=== PATIENT | female | born 1985 | race Caucasian/White ===

== ENCOUNTER 2018-03-11 13:01 | Inpatient (IN) | payer MEDICARE ==
[2018-03-11] VITALS (13 sets, daily range): BP systolic 100–147; BP diastolic 53–93; Ht 167.6 cm; Wt 121.9 kg
[~2018-03-11] VITALS: Ht 167.6 cm; Wt 121.9 kg
--- NOTE | ~2018-03-11 | HP ---
PATIENT: MARY NICOLE MEDICAL RECORD: [id number] ACCOUNT: [id number] LOCATION:[facility] D2312 : 84 ADMISSION DATE: 03/11/18 HISTORY AND PHYSICAL EXAMINATION REASON FOR ADMISSION: Altered mental status and confusion. HISTORY OF PRESENT ILLNESS: The patient is a 32-year-old 5, para 4 female recently moved from [place], [place] to [facility] here in [place]. She states she initially was unable to give any history due to altered mental status, but is able to morning. The patient and her mother states that she has been out of some of her medicines for about 3-4 days due to her move and medicines were called into the [facility] pharmacy here prior to starting those back. She had gone to [place] to buy a bag of ice with her mother, became very confused, was screaming and not making sense. Police were called and EMS was called. The patient became lethargic and presented with altered mental status by EMS. The patient had a history of the hydrocodone for sciatica and stated she had taken some lorazepam. In the ED, the patient was very confused, but vital signs were stable. She had a CT of the head and abdomen due to complain of abdominal pain and that were unremarkable. There is no history of head injury, but a strong history for schizophrenia and possible bipolar disorder. The patient is more alert this morning and able to answer questions and not remember any of the previous events. She denies a history of head injury or seizures in the past. PAST MEDICAL HISTORY: Herniated lumbar disc with sciatica causing chronic back pain, schizophrenia since age 13, questionable bipolar illness, ADHD, sinus tachycardia, HPV infection, recent diagnosis of cervical cancer approximately a month ago, history of peptic ulcer disease, obesity, nicotine addiction, history of chronic iron deficiency anemia. PAST SURGICAL HISTORY: times 1, cholecystectomy, tonsillectomy and adenoidectomy. ALLERGIES: PENICILLINS. FAMILY HISTORY: Mother with diabetes, bipolar, and rheumatoid arthritis. Father of lung cancer, was a smoker. One sister with diabetes. SOCIAL HISTORY: She is to an [place]-. She has 4 living children. Both she and her are disabled. Socially 2-3 pack a day smoker. No alcohol or illicit drugs she states. MEDICATIONS: Partial list are Seroquel 300 mg at h.s., Effexor XR 150 mg daily, Prilosec 20 mg p.o. daily, [place] 5/325 one t.i.d. for low back pain. REVIEW OF SYSTEMS: GENERAL: No fever, fatigue, or weight change. HEENT: No recent visual change, sinus congestion, sore throat or headache. RESPIRATORY: No severe cough. CARDIAC: No chest pain, claudication, history of hypertension or heart disease. Only history of sinus tachycardia. GASTROINTESTINAL: No nausea, vomiting, change in stools or blood per rectum. GENITOURINARY: Complains of dysuria. GYNECOLOGICAL: Has regular menstrual cycles, last 2 weeks ago. HISTORY AND PHYSICAL [id number] MARY NICOLE MUSCULOSKELETAL: Has chronic lumbago, sciatica in the right upper buttocks and leg, which is a problem for her. She said surgery was not recommended. NEUROLOGIC: No history of seizures or head trauma. PSYCHIATRIC: She had a history of suicide ideation and paranoid thoughts, but none recently. PHYSICAL EXAMINATION: VITAL SIGNS: Blood pressure was 110/70, heart rate of 90, respirations of 18, temperature 98.6, O2 sat 96% on room air. GENERAL: The patient initially was disoriented and somnolent. HEENT: Her eyes were clear. Pupils reactive. Sclerae nonicteric. Oropharynx shows poor dentition. NECK: Supple. CHEST: Clear. HEART: Regular without murmur. BREASTS: Symmetrical. ABDOMEN: Obese, soft, nontender. In the midline, in her previous scar under her panniculus, there is a small sinus tract. PELVIC: Deferred. EXTREMITIES: Show multiple tattoos on her skin. She has 1+ bipedal edema. NEUROLOGICAL: The patient now is oriented to person, place, and time. Initially was not. She has no obvious motor or sensory deficits. She has a positive SOR on the right. INTEGUMENT: She is nonicteric. No obvious skin lesions except for the sinus tract wound in her scar midline abdomen. LABORATORY DATA: Shows a white count of 8500 with normal diff, H&H of 7.7 and 27.4. BMP is normal. Tox screen is positive for opiates. Urinalysis shows 1+ leukocyte esterase, 0-5 white and red cells, negative beta hCG. CT of the head was negative. CT of the abdomen and pelvis with IV contrast was unremarkable. ASSESSMENT: 1. Altered mental status, most likely due to abrupt drug withdrawals. 2. History of bipolar depression with suicidal ideation. 3. Chronic iron deficiency anemia due to metromenorrhagia. 4. History of HPV, peptic ulcer disease, lumbago with sciatica, depression, nicotine addiction. PLAN: The patient is much more alert today. She states her bander and cellophaner machine helper in [place]'s name is Dr. Millard. We will have psychiatric and MANAGER ORDER evaluations today to continue continuity of her care, especially in regards to her cervical cancer, start oral iron replacement for her anemia. Further workup pending clinical course. TRANSINT:[id number] Voice Confirmation ID: [id number] DOCUMENT ID: [id number] HISTORY AND PHYSICAL [id number] MARY NICOLE TIMOTHY MD at 0703 CC: [id number] DICTATION DATE: 03/12/18 0745 SUPERVISOR SLASHING DEPARTMENT: 03/12/18 1129 DIS IN 03/12/18 [facility] [address] [place] [address]
--- NOTE | ~2018-03-11 | DS ---
PATIENT:MARY NICOLE :83 MEDICAL RECORD: [id number] DISCHARGE SUMMARY ADMISSION DATE: 03/11/18 DISCHARGE DATE: 03/12/18 DISCHARGE DIAGNOSES: Altered mental status, most likely due to abrupt withdrawal of home medications, bipolar depression with suicidal ideation and chronic iron deficiency anemia, metromenorrhagia, cervical cancer. HOSPITAL COURSE: A 32-year-old 5, para 4 female admitted to services on med protection agent. She was admitted after the patient became very confused, screaming, and not making sense. Police were called to [facility] where she was with her mother and EMS was called. The patient then became lethargic and presented with altered mental status. The patient had a longstanding history of hydrocodone use for sciatica and lorazepam but apparently she had moved here from [place] and could not get her medications refilled and had withdrawal symptoms. CT of the head and abdomen are normal in the ER. She was admitted to the ICU. Apparently, she had some suicidal thoughts as well. The patient was admitted to ICU. Labs were essentially unremarkable. The patient also gave me a history once she became more alert of recent cervical cancer but had not had followup with her CRISIS INTERVENTION COUNSELOR. It is unclear whether she will stay here for further workup or go back to [place]. Consultation with psychiatrist, Dr. Taye Barrios III was obtained. His impression was the patient was schizophrenic, possibly cluster B personality disorder. He recommended admitting to the patient into [facility] for a few days for a more complete assessment and to follow with outpatient treatment through [facility] and have a followup CRISIS INTERVENTION COUNSELOR exam with Dr. Vela at [facility]. The patient was accepted and transferred to [facility] on the day of her consultation on 03/12/2018. When the dependency case manager evaluated the patient at 1300 hours on 03/12/2018, the patient stated she did not want to go to [facility]. It was explained to her that we legally could not hold her because Dr. Barrios, psychiatry, did not think she was suicidal or homicidal. The patient therefore requested to leave [place]. Her IV was removed. The patient's nurse called me and I asked her to confirm if the patient will leave [place] and not seek psychiatric advice and she confirmed that. She was discharged, but as she was leaving [place] we were unable to prescribe any of her chronic medications. She states she will obtain those from her physician at [place]. TRANSINT:[id number] Voice Confirmation ID: [id number] DOCUMENT ID: [id number] VICENTE DUKE MD at 0810 CC: [id number] DICTATION DATE: 04/28/18 1244 SCHOOL VOCATIONAL EDUCATOR: 04/29/18 0522 DIS IN 03/12/18 [place] [id number] [place] [id number]
[2018-03-11 13:51] LABS: APPEARANCE CLEAR (CLEAR); BILIRUBIN NEGATIVE (NEGATIVE); COLOR STRAW (YELLOW); GLUCOSE NEGATIVE (NEGATIVE); KETONE NEGATIVE (NEGATIVE); NITRITE NEGATIVE (NEGATIVE); PROTEIN NEGATIVE (NEGATIVE); SPECIFIC GRAVITY 1.005 (1.005-1.020); UROBILINOGEN NORMAL (NORMAL)
[2018-03-11 13:53] LABS: BACTERIA FEW /hpf (NONE SEEN); EPITHELIAL CELLS 0-5 /hpf (0-5); RED CELLS - URINE 0-5 /hpf (0-5); WHITE CELLS - URINE 0-5 /hpf (0-5)
[2018-03-11 14:07] LABS: UDS - AMPHET NEGATIVE QUAL (NEGATIVE); UDS - BARB NEGATIVE QUAL (NEGATIVE); UDS - BENZO NEGATIVE QUAL (NEGATIVE); UDS - COCAINE NEGATIVE QUAL (NEGATIVE); UDS - OPIATE POSITIVE QUAL (NEGATIVE); UDS - PCP NEGATIVE QUAL (NEGATIVE); UDS - THC NEGATIVE QUAL (NEGATIVE)
[2018-03-11 14:26] LABS: BASOPHILS 0.4 % (0-2); EOSINOPHILS 1.3 % (0-7); HEMATOCRIT 27.4 % (36.0-48.0); HEMOGLOBIN 7.7 g/dL (12-16); IMMATURE GRANULOCYTES 0.2 % (0-5); LYMPHOCYTES 34.8 % (15-50); MCH 22.6 pg (26.0-34.0); MCHC 28.1 g/dL (31.0-37.0); MCV 80.6 fL (80.0-100.0); MEAN PLATELET VOLUME 9.7 fL (7.4-10.4); MONOCYTES 7.2 % (2-11); NEUTROPHILS 56.1 % (40-80); PLATELET COUNT 193 10x3/uL (130-400); RDW 19.3 % (11.5-14.5); WBC 8.5 10x3/uL (4.8-10.8)
[2018-03-11 15:05] LABS: ALBUMIN 3.5 g/dL (3.4-5.0); ALKALINE PHOSPHATASE 123 U/L (46-116); ALT (SGPT) 14 U/L (10-68); CALC OSMOLALITY 279 mosm/kg (275-300); CALCIUM 8.9 mg/dL (8.5-10.1); CARBON DIOXIDE 24.3 mmol/L (21.0-32.0); CHLORIDE - SERUM 107 mmol/L (98-107); CREATININE - SERUM 0.7 mg/dL (0.6-1.3); GLUCOSE 90 mg/dL (74-106); PROTEIN - SERUM 7.3 g/dL (6.4-8.2); SODIUM 141 mmol/L (136-145); UREA NITROGEN 10 mg/dL (7-18); eGFR NON AFRICAN AMERICAN > 90 mL/min (90-120)
[2018-03-11 16:21] LABS: HCG URINE NEGATIVE (NEGATIVE)
[2018-03-12] VITALS (12 sets, daily range): BP systolic 103–144; BP diastolic 59–95
[2018-03-12 04:23] LABS: BASOPHILS 0.3 % (0-2); EOSINOPHILS 2.2 % (0-7); HEMATOCRIT 27.7 % (36.0-48.0); HEMOGLOBIN 7.8 g/dL (12-16); IMMATURE GRANULOCYTES 0.2 % (0-5); LYMPHOCYTES 34.6 % (15-50); MCH 22.5 pg (26.0-34.0); MCHC 28.2 g/dL (31.0-37.0); MCV 80.1 fL (80.0-100.0); MEAN PLATELET VOLUME 9.4 fL (7.4-10.4); MONOCYTES 7.2 % (2-11); NEUTROPHILS 55.5 % (40-80); RBC 3.46 10x6/uL (4.00-5.40); RDW 19.1 % (11.5-14.5); WBC 6.4 10x3/uL (4.8-10.8)
[2018-03-12 04:34] LABS: PLATELET COUNT 305 10x3/uL (130-400)
[2018-03-12 04:45] LABS: CALC OSMOLALITY 282 mosm/kg (275-300); CALCIUM 8.4 mg/dL (8.5-10.1); CARBON DIOXIDE 26.6 mmol/L (21.0-32.0); CHLORIDE - SERUM 107 mmol/L (98-107); CREATININE - SERUM 0.6 mg/dL (0.6-1.3); GLUCOSE 87 mg/dL (74-106); POTASSIUM - SERUM 3.8 mmol/L (3.5-5.1); SODIUM 143 mmol/L (136-145); UREA NITROGEN 10 mg/dL (7-18); eGFR NON AFRICAN AMERICAN > 90 mL/min (90-120)
[2018-03-12] MEDS ORDERED: OMEPRAZOLE40 MG PO (11:59)
[2018-03-12] MEDS ORDERED: SEROQUEL XR200 MG PO (11:59)
[2018-03-12] MEDS ORDERED: REQUIP1 MG PO (11:59)
[2018-03-12] MEDS ORDERED: EFFEXOR XR150 MG PO (11:59)
[2018-03-12] MEDS ORDERED: KLONOPIN1 MG PO (12:00)
[2018-03-12] MEDS ORDERED: AMBIEN10 MG PO (12:00)
[2018-03-12] MEDS ORDERED: HYDROCODON-ACE1 EAC6 PO (12:02)
[2018-03-12] MEDS ORDERED: PERCOCET 5-3251 TAB PO (12:05)
== END 2018-03-12 13:39 | disposition left against medical advice (07) | DRG 894 ==
LOC: D.ER 13:01 → EDBD 18:26 → D.ICU 18:26
PROVIDERS: Family Medicine
DX: F19.939 Other psychoactive substance use, unspecified with withdrawal, unspecified (principal); R40.2363 Coma scale, best motor response, obeys commands, at hospital admission; R40.2143 Coma scale, eyes open, spontaneous, at hospital admission; R40.2243 Coma scale, best verbal response, confused conversation, at hospital admission; D50.9 Iron deficiency anemia, unspecified; C53.9 Malignant neoplasm of cervix uteri, unspecified; F20.9 Schizophrenia, unspecified; N92.1 Excessive and frequent menstruation with irregular cycle

== ENCOUNTER 2018-03-22 14:34 | Emergency (ER) | payer MEDICARE ==
[~2018-03-22] VITALS: Ht 167.6 cm; Wt 124.5 kg
[~2018-03-22 14:34] MED LIST: AMBIEN10 MG PO; EFFEXOR XR150 MG PO; HYDROCODON-ACE1 EAC6 PO; KLONOPIN1 MG PO; OMEPRAZOLE40 MG PO; PERCOCET 5-3251 TAB PO; REQUIP1 MG PO; SEROQUEL XR200 MG PO
[2018-03-22 14:36] VITALS: Ht 167.6 cm; Wt 124.5 kg
[2018-03-22 15:02] LABS: UDS - AMPHET NEGATIVE QUAL (NEGATIVE); UDS - BARB NEGATIVE QUAL (NEGATIVE); UDS - BENZO POSITIVE QUAL (NEGATIVE); UDS - COCAINE NEGATIVE QUAL (NEGATIVE); UDS - OPIATE NEGATIVE QUAL (NEGATIVE); UDS - PCP NEGATIVE QUAL (NEGATIVE); UDS - THC NEGATIVE QUAL (NEGATIVE)
[2018-03-22 16:23] LABS: APPEARANCE CLEAR (CLEAR); BACTERIA MANY /hpf (NONE SEEN); BILIRUBIN NEGATIVE (NEGATIVE); COLOR YELLOW (YELLOW); EPITHELIAL CELLS 0-5 /hpf (0-5); GLUCOSE NEGATIVE (NEGATIVE); KETONE NEGATIVE (NEGATIVE); NITRITE NEGATIVE (NEGATIVE); PROTEIN NEGATIVE (NEGATIVE); RED CELLS - URINE 0-5 /hpf (0-5); UROBILINOGEN NORMAL (NORMAL); WHITE CELLS - URINE 25-50 /hpf (0-5)
[2018-03-22] MEDS ORDERED: ROBAXIN-750750 MG PO (16:55)
[2018-03-22] MEDS ORDERED: TALWIN NX1 TAB PO (16:55)
[2018-03-22] MEDS ORDERED: MACROBID100 MG PO (16:55)
[2018-03-22 17:38] VITALS: BP 130/78
== END 2018-03-22 17:35 | disposition home or self-care (01) ==
LOC: D.ER 14:34
PROVIDERS: Emergency Medicine
DX: S89.91XA Unspecified injury of right lower leg, initial encounter (principal); X58.XXXA Exposure to other specified factors, initial encounter; Y93.89 Activity, other specified; Y92.89 Other specified places as the place of occurrence of the external cause; N39.0 Urinary tract infection, site not specified

== ENCOUNTER 2018-05-14 17:32 | Emergency (ER) | payer MEDICARE ==
[~2018-05-14] VITALS: Ht 167.6 cm; Wt 120.0 kg
[~2018-05-14 17:32] MED LIST changes: +MACROBID100 MG PO; +ROBAXIN-750750 MG PO; +TALWIN NX1 TAB PO
[2018-05-14 17:55] VITALS: Ht 167.6 cm; Wt 120.0 kg
[2018-05-14 18:38] LABS: APPEARANCE CLEAR (CLEAR); COLOR YELLOW (YELLOW)
[2018-05-14 18:39] LABS: BACTERIA FEW /hpf (NONE SEEN); BILIRUBIN NEGATIVE (NEGATIVE); EPITHELIAL CELLS 0-5 /hpf (0-5); GLUCOSE NEGATIVE (NEGATIVE); KETONE NEGATIVE (NEGATIVE); NITRITE NEGATIVE (NEGATIVE); PROTEIN NEGATIVE (NEGATIVE); RED CELLS - URINE OCC /hpf (0-5); UROBILINOGEN NORMAL (NORMAL); WHITE CELLS - URINE 0-5 /hpf (0-5)
[2018-05-14 19:27] LABS: BASOPHILS 0.3 % (0-2); EOSINOPHILS 2.1 % (0-7); HEMATOCRIT 28.6 % (36.0-48.0); HEMOGLOBIN 8.4 g/dL (12-16); IMMATURE GRANULOCYTES 0.3 % (0-5); LYMPHOCYTES 37.3 % (15-50); MCH 23.3 pg (26.0-34.0); MCHC 29.4 g/dL (31.0-37.0); MCV 79.2 fL (80.0-100.0); MEAN PLATELET VOLUME 8.8 fL (7.4-10.4); MONOCYTES 4.5 % (2-11); NEUTROPHILS 55.5 % (40-80); PLATELET COUNT 330 10x3/uL (130-400); RBC 3.61 10x6/uL (4.00-5.40); WBC 7.2 10x3/uL (4.8-10.8)
[2018-05-14 20:07] LABS: ALBUMIN 3.5 g/dL (3.4-5.0); ALKALINE PHOSPHATASE 143 U/L (46-116); ALT (SGPT) 18 U/L (10-68); BILIRUBIN - TOTAL 0.17 mg/dL (0.2-1.3); CALC OSMOLALITY 275 mosm/kg (275-300); CALCIUM 8.6 mg/dL (8.5-10.1); CARBON DIOXIDE 27.1 mmol/L (21.0-32.0); CHLORIDE - SERUM 104 mmol/L (98-107); CREATININE - SERUM 0.7 mg/dL (0.6-1.3); GLUCOSE 97 mg/dL (74-106); POTASSIUM - SERUM 3.9 mmol/L (3.5-5.1); PROTEIN - SERUM 7.8 g/dL (6.4-8.2); SODIUM 139 mmol/L (136-145); UREA NITROGEN 8 mg/dL (7-18); eGFR NON AFRICAN AMERICAN > 90 mL/min (90-120)
[2018-05-14 20:29] LABS: AMYLASE - SERUM 29 U/L (25-115); CKMB 0.9 U/L (0.0-3.6); CREATINE KINASE 66 UL (21-215); LIPASE 127 U/L (73-393)
[2018-05-14 20:39] LABS: TROPONIN-I < 0.017 ng/mL (0.000-0.060)
[2018-05-14] MEDS ORDERED: NORCO 7.5/325 T1 TA1 PO (21:29)
[2018-05-14 22:04] VITALS: BP 129/72
== END 2018-05-14 22:05 | disposition home or self-care (01) ==
LOC: D.ER 17:32
PROVIDERS: Family Medicine
DX: R10.9 Unspecified abdominal pain (principal); R35.0 Frequency of micturition; Z86.711 Personal history of pulmonary embolism; K21.9 Gastro-esophageal reflux disease without esophagitis

== ENCOUNTER 2018-05-21 13:01 | Emergency (ER) | payer MEDICARE ==
[~2018-05-21] VITALS: Ht 167.6 cm; Wt 120.0 kg
[~2018-05-21 13:01] MED LIST changes: +NORCO 7.5/325 T1 TA1 PO
[2018-05-21 13:03] VITALS: BP 169/97; Ht 167.6 cm; Wt 120.0 kg
[2018-05-21 15:22] LABS: APPEARANCE CLEAR (CLEAR); BILIRUBIN NEGATIVE (NEGATIVE); COLOR YELLOW (YELLOW); GLUCOSE NEGATIVE (NEGATIVE); KETONE NEGATIVE (NEGATIVE); NITRITE NEGATIVE (NEGATIVE); PROTEIN NEGATIVE (NEGATIVE); UROBILINOGEN NORMAL (NORMAL)
[2018-05-21 15:29] LABS: RED CELLS - URINE 0-5 /hpf (0-5); WHITE CELLS - URINE >50 /hpf (0-5)
[2018-05-21 15:30] LABS: BACTERIA MANY /hpf (NONE SEEN)
[2018-05-21] MEDS ORDERED: ULTRAM50 MG PO (16:11)
[2018-05-21] MEDS ORDERED: NEURONTIN 300300 MG PO (16:11)
== END 2018-05-21 16:41 | disposition home or self-care (01) ==
LOC: D.ER 13:01
PROVIDERS: Emergency Medicine
DX: M54.16 Radiculopathy, lumbar region (principal); K21.9 Gastro-esophageal reflux disease without esophagitis; F17.200 Nicotine dependence, unspecified, uncomplicated

== ENCOUNTER 2018-08-24 21:08 | Emergency (ER) | payer MEDICARE ==
[~2018-08-24] VITALS: Ht 167.6 cm; Wt 113.6 kg
[~2018-08-24 21:08] MED LIST changes: +NEURONTIN 300300 MG PO; +ULTRAM50 MG PO
[2018-08-24 21:12] VITALS: Ht 167.6 cm; Wt 113.6 kg
[2018-08-24 21:34] LABS: BASOPHILS 0.3 % (0-2); HEMATOCRIT 32.6 % (36.0-48.0); HEMOGLOBIN 9.9 g/dL (12-16); IMMATURE GRANULOCYTES 0.2 % (0-5); LYMPHOCYTES 28.4 % (15-50); MCH 25.6 pg (26.0-34.0); MCHC 30.4 g/dL (31.0-37.0); MCV 84.5 fL (80.0-100.0); MEAN PLATELET VOLUME 9.3 fL (7.4-10.4); MONOCYTES 4.2 % (2-11); NEUTROPHILS 65.9 % (40-80); PLATELET COUNT 375 10x3/uL (130-400); RBC 3.86 10x6/uL (4.00-5.40); RDW 18.7 % (11.5-14.5); WBC 10.5 10x3/uL (4.8-10.8)
[2018-08-24 21:47] LABS: HCG SERUM NEGATIVE (NEGATIVE)
[2018-08-24 21:48] LABS: ALBUMIN 3.6 g/dL (3.4-5.0); ALKALINE PHOSPHATASE 104 U/L (46-116); ALT (SGPT) 13 U/L (10-68); BILIRUBIN - TOTAL 0.23 mg/dL (0.2-1.3); CALC OSMOLALITY 277 mosm/kg (275-300); CALCIUM 9.2 mg/dL (8.5-10.1); CARBON DIOXIDE 23.3 mmol/L (21.0-32.0); CHLORIDE - SERUM 104 mmol/L (98-107); CREATININE - SERUM 0.7 mg/dL (0.6-1.3); GLUCOSE 124 mg/dL (74-106); POTASSIUM - SERUM 3.8 mmol/L (3.5-5.1); PROTEIN - SERUM 7.8 g/dL (6.4-8.2); SODIUM 139 mmol/L (136-145); UREA NITROGEN 9 mg/dL (7-18); eGFR NON AFRICAN AMERICAN > 90 mL/min (90-120)
[2018-08-24 21:49] LABS: APPEARANCE HAZY (CLEAR); BILIRUBIN NEGATIVE (NEGATIVE); COLOR YELLOW (YELLOW); GLUCOSE NEGATIVE (NEGATIVE); KETONE NEGATIVE (NEGATIVE); NITRITE POSITIVE (NEGATIVE); PROTEIN NEGATIVE (NEGATIVE); RED CELLS - URINE NONE SEEN /hpf (0-5); UROBILINOGEN NORMAL (NORMAL); WHITE CELLS - URINE 0-5 /hpf (0-5)
[2018-08-24 21:50] LABS: BACTERIA MANY /hpf (NONE SEEN)
[2018-08-24 21:53] LABS: ACETAMINOPHEN 24.5 ug/mL (10.0-30.0)
[2018-08-24 22:03] LABS: UDS - AMPHET NEGATIVE QUAL (NEGATIVE); UDS - BARB NEGATIVE QUAL (NEGATIVE); UDS - BENZO NEGATIVE QUAL (NEGATIVE); UDS - COCAINE NEGATIVE QUAL (NEGATIVE); UDS - OPIATE NEGATIVE QUAL (NEGATIVE); UDS - PCP NEGATIVE QUAL (NEGATIVE); UDS - THC NEGATIVE QUAL (NEGATIVE)
[2018-08-25 00:14] VITALS: BP 110/86
== END 2018-08-25 00:44 | disposition home or self-care (01) ==
LOC: D.ER 21:08
PROVIDERS: Family Medicine
DX: F32.9 Major depressive disorder, single episode, unspecified (principal); R45.851 Suicidal ideations; F41.9 Anxiety disorder, unspecified; X78.9XXA Intentional self-harm by unspecified sharp object, initial encounter; Y93.89 Activity, other specified; Y92.019 Unspecified place in single-family (private) house as the place of occurrence of the external cause

== ENCOUNTER 2018-09-01 12:06 | Emergency (ER) | payer MEDICARE ==
[~2018-09-01] VITALS: Ht 167.6 cm; Wt 116.8 kg
[2018-09-01 12:22] VITALS: Ht 167.6 cm; Wt 116.8 kg
[2018-09-01 14:21] VITALS: BP 108/89
== END 2018-09-01 14:22 | disposition home or self-care (01) ==
LOC: D.ER 12:06
DX: M79.652 Pain in left thigh (principal); W18.30XA Fall on same level, unspecified, initial encounter; Y93.89 Activity, other specified; Y92.019 Unspecified place in single-family (private) house as the place of occurrence of the external cause

== ENCOUNTER 2018-10-01 10:13 | Emergency (ER) | payer MEDICARE, MEDICAID ==
[2018-09-01 12:22] VITALS: Ht 167.6 cm; Wt 118.2 kg
[~2018-10-01] VITALS: Ht 167.6 cm; Wt 118.2 kg
[2018-10-01] MEDS ORDERED: OMEPRAZOLE20 M1 (10:18)
[2018-10-01] MEDS ORDERED: NORCO 7.5/325 T1 TA1 PO (10:18)
[2018-10-01 11:01] LABS: BASOPHILS 0.2 % (0-2); EOSINOPHILS 3.1 % (0-7); HEMATOCRIT 27.4 % (36.0-48.0); HEMOGLOBIN 8.1 g/dL (12-16); IMMATURE GRANULOCYTES 0.4 % (0-5); LYMPHOCYTES 44.2 % (15-50); MCH 25.4 pg (26.0-34.0); MCHC 29.6 g/dL (31.0-37.0); MCV 85.9 fL (80.0-100.0); MEAN PLATELET VOLUME 8.9 fL (7.4-10.4); MONOCYTES 8.5 % (2-11); NEUTROPHILS 43.6 % (40-80); RBC 3.19 10x6/uL (4.00-5.40); RDW 17.8 % (11.5-14.5); WBC 5.4 10x3/uL (4.8-10.8)
[2018-10-01 11:02] LABS: PLATELET COUNT 278 10x3/uL (130-400)
[2018-10-01 11:10] LABS: ALBUMIN 3.1 g/dL (3.4-5.0); ALKALINE PHOSPHATASE 99 U/L (46-116); ALT (SGPT) 16 U/L (10-68); AMYLASE - SERUM 16 U/L (25-115); BILIRUBIN - TOTAL 0.21 mg/dL (0.2-1.3); CALC OSMOLALITY 275 mosm/kg (275-300); CALCIUM 8.5 mg/dL (8.5-10.1); CARBON DIOXIDE 24.8 mmol/L (21.0-32.0); CHLORIDE - SERUM 105 mmol/L (98-107); CREATININE - SERUM 0.8 mg/dL (0.6-1.3); GLUCOSE 94 mg/dL (74-106); LIPASE 77 U/L (73-393); POTASSIUM - SERUM 3.7 mmol/L (3.5-5.1); SODIUM 139 mmol/L (136-145); UREA NITROGEN 8 mg/dL (7-18); eGFR NON AFRICAN AMERICAN 87 mL/min (90-120)
[2018-10-01 11:16] LABS: HCG SERUM NEGATIVE (NEGATIVE)
[2018-10-01 11:46] LABS: APPEARANCE HAZY (CLEAR); BILIRUBIN NEGATIVE (NEGATIVE); COLOR RED (YELLOW); GLUCOSE NEGATIVE (NEGATIVE); KETONE NEGATIVE (NEGATIVE); NITRITE NEGATIVE (NEGATIVE); PROTEIN NEGATIVE (NEGATIVE); UROBILINOGEN NORMAL (NORMAL)
[2018-10-01 11:47] LABS: EPITHELIAL CELLS 0-5 /hpf (0-5); RED CELLS - URINE 25-50 /hpf (0-5); WHITE CELLS - URINE 0-5 /hpf (0-5)
[2018-10-01] MEDS ORDERED: ULTRAM50 MG PO (14:06)
[2018-10-01 14:23] VITALS: BP 142/80
== END 2018-10-01 14:24 | disposition home or self-care (01) ==
LOC: D.ER 10:13
PROVIDERS: Emergency Medicine
DX: R10.30 Lower abdominal pain, unspecified (principal); D64.9 Anemia, unspecified; C53.9 Malignant neoplasm of cervix uteri, unspecified; N94.6 Dysmenorrhea, unspecified

== ENCOUNTER 2019-09-29 08:16 | Emergency (ER) | payer OTHER, MEDICAID ==
[~2019-09-29] VITALS: Ht 167.6 cm; Wt 109.1 kg
[~2019-09-29 08:16] MED LIST changes: +OMEPRAZOLE20 M1
[2019-09-29 08:25] VITALS: Ht 167.6 cm; Wt 109.1 kg
[2019-09-29] MEDS ORDERED: HYDROCODON-ACE1 EAC7 PO (09:25)
[2019-09-29 09:40] VITALS: BP 124/57
== END 2019-09-29 09:45 | disposition home or self-care (01) ==
LOC: D.ER 08:16
DX: M25.562 Pain in left knee (principal); M25.561 Pain in right knee; G47.00 Insomnia, unspecified; F32.9 Major depressive disorder, single episode, unspecified; F17.210 Nicotine dependence, cigarettes, uncomplicated